=== PATIENT | male | born 1995 | race Caucasian/White ===

== ENCOUNTER 2017-08-15 18:26 | Emergency (ER) | payer BC, OTHER ==
[~2017-08-15] VITALS: Ht 182.9 cm; Wt 85.9 kg
[2017-08-15 18:42] VITALS: TEMP 37; Ht 182.9 cm; Wt 85.9 kg
[2017-08-15 18:55] VITALS: O2SAT 93
[2017-08-15] MEDS ORDERED: ONDANSETRON 4MG OD TAB PO ONE (19:30)
[2017-08-15 19:53] LABS: BUN/CREATININE RATIO 14.3 (10-20); CALCIUM 8.1 mg/dl (8.5-10.1); CREATININE 1.07 mg/dl (0.60-1.40); POTASSIUM 3.9 mmol/L (3.5-5.1)
--- NOTE | 2017-08-15 20:33 | DIAGNOSTIC IMAGING REPORT ---
CT SCAN OF THE BRAIN WITHOUT IV CONTRAST CLINICAL HISTORY: Intoxication. Syncope. COMPARISON STUDY: No priors. TECHNIQUE: Unenhanced axial CT scan of the brain is performed from the vertex to the skull base. A dose lowering technique was utilized adhering to the principles of ALARA. CT DOSE: 614.27 mGy.cm FINDINGS: Brain parenchyma: The brain parenchyma is normal in appearance. There is no hemorrhage, mass effect, or evidence of acute territorial ischemia by CT criteria. Jenkins-white matter is preserved. No extra-axial fluid collection is seen. Ventricles, sulci, cisterns: Normal in configuration. Intracranial vasculature: The visualized intracranial vasculature at the skull base is normal in appearance. Calvarium: There is no depressed calvarial fracture. Sinuses and mastoids: Trace mucosal thickening is seen within the maxillary antra, the sphenoid sinuses, and the ethmoid sinuses. Moderate mucosal thickening is present in the left frontal sinus. The mastoid air cells are well pneumatized. Orbits: The bony orbits are grossly intact. IMPRESSION: No acute intracranial abnormality. Electronically signed by: Siva Crowell M.D. 08/15/2017 8:32 PM Dictated Date/Time: 08/15/2017 8:30 PM
[2017-08-16] MEDS ORDERED: LORAZEPAM 2 MG/ML 1 ML VIAL IM STA (00:44)
--- NOTE | 2017-08-16 01:04 | EMERGENCY ROOM VISIT NOTE ---
History Report prepared by Kishoribeligio: Lela West Under the Supervision of: Dr. Ed Dwyer D.O. 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 Per EMS, the patient was found outside a [employer] [facility] at the [email or web address] today. He has no obvious trauma but there is blood in the left naris. He notes that the patient has been vomiting. HPI limited secondary to alcohol intoxication. Source of History: EMS History Limited By: intoxication Onset: NETWORK DEVELOPER Position: other (global) Quality: other (alcohol intoxication) Timing: constant Associated Symptoms: + vomiting Note: No obvious trauma. Review of Systems See HPI for pertinent positives & negatives. A total of 10 systems reviewed and were otherwise negative. Past Medical & Surgical Medical Problems: (1) No Known Active Medical Problems Family History No pertinent family history stated. Social History Marital Status: single Housing Status: lives with roommate Occupation Status: [employer] student Current/Historical Medications No Active Prescriptions or Reported Meds Physical Exam Vital Signs Date Time Temp Pulse Resp B/P (MAP) Pulse Ox O2 Delivery O2 Flow Rate FiO2 08/16/17 00:27 95 18 131/67 99 Room Air 08/15/17 23:55 106 18 110/53 97 Room Air 08/15/17 21:23 83 18 115/59 98 Room Air 08/15/17 21:02 73 08/15/17 19:28 76 116/57 100 Room Air 08/15/17 18:55 93 Room Air 08/15/17 18:54 98 Nasal Cannula 08/15/17 18:42 37.0 96 17 143/92 93 Room Air Physical Exam CONSTITUTIONAL/VITAL SIGNS: Reviewed / noted above. GENERAL: Non-toxic in appearance. INTEGUMENTARY: Warm, dry, and [place]. HEAD: Normocephalic. EYES: without scleral icterus or trauma. ENT/OROPHARYNX: clear and moist. Blood in bilateral naris, no active bleeding. LYMPHADENOPATHY/NECK: Is supple without lymphadenopathy or meningismus. RESPIRATORY: Lungs clear and equal. CARDIOVASCULAR: Regular rate and rhythm. GI/ABDOMEN: Soft and nontender. No organomegaly or pulsatile mass. No rebound or guarding. Normal bowel sounds. EXTREMITIES: Warm and well perfused. BACK: No CVA tenderness. Abrasion to right upper back. NEUROLOGICAL: Unresponsive to verbal stimuli, noted to move extremities with pain. PSYCHIATRIC: normal affect. MUSCULOSKELETAL: Normally developed with good muscle tone. Medical Decision & Procedures ER Provider Diagnostic Interpretation: Radiology results as stated below per my review and radiologist interpretation: CT SCAN OF THE BRAIN WITHOUT IV CONTRAST FINDINGS: Brain parenchyma: The brain parenchyma is normal in appearance. There is no hemorrhage, mass effect, or evidence of acute territorial ischemia by CT criteria. Jenkins-white matter is preserved. No extra-axial fluid collection is seen. Ventricles, sulci, cisterns: Normal in configuration. Intracranial vasculature: The visualized intracranial vasculature at the skull base is normal in appearance. Calvarium: There is no depressed calvarial fracture. Sinuses and mastoids: Trace mucosal thickening is seen within the maxillary antra, the sphenoid sinuses, and the ethmoid sinuses. Moderate mucosal thickening is present in the left frontal sinus. The mastoid air cells are well pneumatized. Orbits: The bony orbits are grossly intact. IMPRESSION: No acute intracranial abnormality. Electronically signed by: Siva Crowell M.D. 08/15/2017 8:32 PM Dictated Date/Time: 08/15/2017 8:30 PM Laboratory Results 08/15/17 19:12 Test 08/15/17 19:12 Anion Gap 10.0 mmol/L (3-11) Est Creatinine Clear Calc Drug Dose 120.9 ml/min Estimated GFR () 115.2 Estimated GFR (Non- 99.4 BUN/Creatinine Ratio 14.3 (10-20) Calcium Level 8.1 mg/dl (8.5-10.1) Ethyl Alcohol mg/dL 368.8 mg/dl (0-3) Laboratory results as stated above per my review. Medications Administered Medications (Trade) Dose Ordered Sig/Anitha Route Start Time Stop Time Status Last Admin Dose Admin Ondansetron HCl (Zofran Odt) 4 mg ONE ONCE PO 08/15/17 19:30 08/15/17 19:31 DC 08/15/17 19:22 4 MG ED Course 182: Previous medical records were reviewed. The patient was evaluated in room A11. A complete history and physical examination was performed. 1930: Zofran Odt 4mg PO. 0015: The patient will be discharged at 0800. Medical Decision There is no evidence of other toxic ingestions, trauma, anemia, hypoglycemia, head injury or intracranial pathology, meningitis, encephalitis, acute intrathoracic or abdominal pathology or other metabolic condition. This is a 22-year-old male who presents to the ED with a chief complaint of alcohol intoxication. The patient also fell and suffered abrasions to his face. He had some blood in his nose. There is no evidence of septal hematoma. The patient also. Have an abrasion to his right upper back. His lungs were clear. His exam was otherwise unremarkable. His vital signs are stable. Alcohol level was 368 at 1900 hrs. The patient's father and roommate also came to the ED to see him. They were advised to pick him up around 8 AM at which time he would be sober. The patient did become awake and somewhat agitated around 1 AM and was given 2 mg of IM Ativan to calm him. The patient remained in an aspiration precaution position during his ED stay. The patient remained on the monitor without ectopy. Pulse ox was never shown any evidence of hypoxia. Blood pressure never showed significant hypotension. The patient was observed during the entire night and awoke in the morning. The mental status improved and the patient was awake alert and oriented and was felt stable for discharge. Patient was discharged home. Medication Reconcilliation Current Medication List: was personally reviewed by me Blood Pressure Screening Patient's blood pressure: Elevated blood pressure Blood pressure disposition: Elevated BP felt to be situational Impression Primary Impression: Alcoholic intoxication Scribe Attestation The scribe's documentation has been prepared under my direction and personally reviewed by me in its entirety. I confirm that the note above accurately reflects all work, treatment, procedures, and medical decision making performed by me. Departure Information Dispostion Home / Self-Care Prescriptions No Active Prescriptions or Reported Meds Patient Instructions Alcohol Intoxication - [facility], [facility]: [employer] Students and Alcohol Related Visits , My [facility] Additional Instructions Do not drink alcohol.
[2017-08-16] MEDS ORDERED: HALOPERIDOL LACTATE 5 MG/ML 1 ML VIAL IM STA (01:49)
[2017-08-16 09:16] VITALS: BP 110/68; PULSE 97; O2SAT 100
[2017-08-17] MEDS ORDERED: AMPH20CA3 PO (17:41)
== END 2017-08-16 09:20 | disposition home or self-care (01) ==
LOC: EDBD 18:26 → C.EDA 18:28 → C.EDC 08-16 09:20
DX: F10.129 Alcohol abuse with intoxication, unspecified (principal); Y90.8 Blood alcohol level of 240 mg/100 ml or more

== ENCOUNTER 2017-08-17 16:41 | Emergency (ER) | payer BC ==
[~2017-08-17] VITALS: Ht 180.3 cm; Wt 86.4 kg
[2017-08-17 16:49] VITALS: TEMP 36.8
[2017-08-17] MEDS ORDERED: SODIUM CHLORIDE 0.9% 1000ML 1,000 ML IV STA (17:01)
[2017-08-17] MEDS ORDERED: BENZTROPINE MESYLATE 1 MG/ML 2 ML AMP IV STA ×2 (17:01→17:06)
[2017-08-17] MEDS ORDERED: CLONIDINE HCL 0.3 MG/24 HR TRANSDERM SYS TD STA (17:05)
--- NOTE | 2017-08-17 17:11 | EMERGENCY ROOM VISIT NOTE ---
History Report prepared by Kishoribe: Sofie Kwon Under the Supervision of: Dr. Ed Ruiz M.D. First contact with patient: 16:56 Chief Complaint: ILLNESS Stated Complaint: TREMORS History of Present Illness The patient is a 22 year old male who presents to the Emergency Room with complaints of tremors beginning this morning. The patient states that he drinks large amounts of alcohol twice a week. He has abdominal pain and his neck hurts from his tremors. The patient was seen in the ED on Thursday by Dr. Dwyer and he had a blood alcohol level of 368. Source of History: patient Onset: this morning Position: other (generalized) Quality: other (tremors) Associated Symptoms: + neck pain, + abdominal pain Review of Systems See HPI for pertinent positives & negatives. A total of 10 systems reviewed and were otherwise negative. Past Medical & Surgical Medical Problems: (1) No Known Active Medical Problems Family History No pertinent family history stated Social History Smoking Status: Never Smoker Marital Status: single Housing Status: lives with roommate Occupation Status: [employer] student Current/Historical Medications Scheduled PRN Amphetamine-Dextroamphetamine 20MG (Adderall Xr 20MG), 20 MG PO PT PRN for CONCENTRATION Allergies Coded Allergies: No Known Allergies (Unverified , 08/17/17) Physical Exam Vital Signs Date Time Temp Pulse Resp B/P (MAP) Pulse Ox O2 Delivery O2 Flow Rate FiO2 08/17/17 19:11 94 16 142/79 98 08/17/17 18:45 94 16 142/79 98 Room Air 08/17/17 18:43 77 16 138/68 98 Room Air 100 137/75 94 142/79 08/17/17 17:21 99 Room Air 08/17/17 17:21 99 Room Air 08/17/17 17:03 99 08/17/17 16:49 36.8 130 20 156/82 100 Room Air Physical Exam GENERAL: Patient is a tremulous male: sensation immediately ceased with Cogentin HEAD: Normocephalic atraumatic EYES: Ocular movements intact pupils equal and react to light OROPHARYNX mucous membranes are moist no exudates present no erythema or edema present NECK: Cannot move neck CHEST: Good equal expansion LUNGS: Clear and equal to auscultation CARDIAC: Normal S1 and S2 ABDOMEN: Soft nontender no guarding BACK: No CVA tenderness EXTREMITIES: Foot stuck in air NEURO: Patient is following commands and answering questions appropriately. Alert and oriented x3 Cranial Nerves 2-12 grossly intact Medical Decision & Procedures Laboratory Results 08/17/17 17:29 Red Blood Count 4.80, Mean Corpuscular Volume 83.1, Mean Corpuscular Hemoglobin 29.4, Mean Corpuscular Hemoglobin Concent 35.3, Mean Platelet Volume 11.1, Neutrophils (%) (Auto) 72.1, Lymphocytes (%) (Auto) 18.4, Monocytes (%) (Auto) 8.3, Eosinophils (%) (Auto) 1.0, Basophils (%) (Auto) 0.1, Neutrophils # (Auto) 5.06, Lymphocytes # (Auto) 1.29, Monocytes # (Auto) 0.58, Eosinophils # (Auto) 0.07, Basophils # (Auto) 0.01 08/17/17 17:29 Test 08/17/17 17:29 08/17/17 18:33 White Blood Count 7.02 K/uL (4.8-10.8) Red Blood Count 4.80 M/uL (4.7-6.1) Hemoglobin 14.1 g/dL (14.0-18.0) Hematocrit 39.9 % (42-52) Mean Corpuscular Volume 83.1 fL (80-100) Mean Corpuscular Hemoglobin 29.4 pg (25-34) Mean Corpuscular Hemoglobin Concent 35.3 g/dl (32-36) Platelet Count 170 K/uL (130-400) Mean Platelet Volume 11.1 fL (7.4-10.4) Neutrophils (%) (Auto) 72.1 % Lymphocytes (%) (Auto) 18.4 % Monocytes (%) (Auto) 8.3 % Eosinophils (%) (Auto) 1.0 % Basophils (%) (Auto) 0.1 % Neutrophils # (Auto) 5.06 K/uL (1.4-6.5) Lymphocytes # (Auto) 1.29 K/uL (1.2-3.4) Monocytes # (Auto) 0.58 K/uL (0.11-0.59) Eosinophils # (Auto) 0.07 K/uL (0-0.5) Basophils # (Auto) 0.01 K/uL (0-0.2) RDW Standard Deviation 39.4 fL (36.4-46.3) RDW Coefficient of Variation 13.1 % (11.5-14.5) Immature Granulocyte % (Auto) 0.1 % Immature Granulocyte # (Auto) 0.01 K/uL (0.00-0.02) Anion Gap 9.0 mmol/L (3-11) Est Creatinine Clear Calc Drug Dose 114.0 ml/min Estimated GFR () 111.4 Estimated GFR (Non- 96.1 BUN/Creatinine Ratio 7.5 (10-20) Calcium Level 8.5 mg/dl (8.5-10.1) Total Bilirubin 0.5 mg/dl (0.2-1) Direct Bilirubin 0.1 mg/dl (0-0.2) Aspartate Amino Transf (AST/SGOT) 23 U/L (15-37) Alanine Aminotransferase (ALT/SGPT) 31 U/L (12-78) Alkaline Phosphatase 64 U/L (45-117) Total Creatine Kinase 430 U/L (39-308) Creatine Kinase MB 0.6 ng/ml (0.5-3.6) Creatine Kinase MB Ratio 0.1 (0-3.0) Troponin I < 0.015 ng/ml (0-0.045) Total Protein 7.6 gm/dl (6.4-8.2) Albumin 3.8 gm/dl (3.4-5.0) Thyroid Stimulating Hormone (TSH) 1.390 uIu/ml (0.300-4.500) Ethyl Alcohol mg/dL < 3.0 mg/dl (0-3) Urine Color YELLOW Urine Appearance CLEAR (CLEAR) Urine pH 7.0 (4.5-7.5) Urine Specific [address] 1.012 (1.000-1.030) Urine Protein TRACE (NEG) Urine Glucose (UA) NEG (NEG) Urine Ketones TRACE (NEG) Urine Occult Blood NEG (NEG) Urine Nitrite NEG (NEG) Urine Bilirubin NEG (NEG) Urine Urobilinogen NEG (NEG) Urine Leukocyte Esterase TRACE (NEG) Urine WBC (Auto) 1-5 /hpf (0-5) Urine RBC (Auto) 0-4 /hpf (0-4) Urine Hyaline Casts (Auto) 0 /lpf (0-5) Urine Epithelial Cells (Auto) 0-5 /lpf (0-5) Urine Bacteria (Auto) NEG (NEG) Urine Opiates Screen NEG (NEG) Urine Methadone, Qualitative NEG (NEG) Urine Barbiturates NEG (NEG) Urine Phencyclidine (PCP) Level NEG (NEG) Ur Amphetamine/Methamphetamine NEG (NEG) MDMA (Ecstasy) Screen NEG (NEG) Urine Benzodiazepines Screen NEG (NEG) Urine Cocaine Metabolite NEG (NEG) Urine Marijuana (THC) NEG (NEG) Labs reviewed by ED physician. Medications Administered Medications (Trade) Dose Ordered Sig/Anitha Route Start Time Stop Time Status Last Admin Dose Admin Benztropine Mesylate (Cogentin Inj) 1 mg NOW STAT IV 08/17/17 17:01 08/17/17 17:03 DC 08/17/17 17:11 2 MG Sodium Chloride 1,000 ml @ 999 mls/hr Q1H1M STAT IV 08/17/17 17:01 08/17/17 18:01 DC 08/17/17 17:10 999 MLS/HR ECG Indication: diaphoresis Rate (beats per minute): 79 Rhythm: normal sinus Findings: no acute ischemic change, no ectopy Comparison ECG Date: no prior available ED Course 1700: Past medical records reviewed. The patient was evaluated in room B4B. A complete history and physical examination was performed. 1701: Sodium Chloride 1000 ml @ 999 mls/hr, Cogentin Inj 1 mg IV. 1705: Clonidine HCl 1 patch TD. 1706: Cogentin Inj 1 mg IV. 1710: I called the patients parents. I made them aware that I advised the patient to go to a rehab facility and he declined. The patient's father told me that the patient has been using cocaine. 1811: I rechecked the patient with mother at bedside. She is demanding a toxicology screen. Medical Decision Differential diagnoses: medication reaction and withdrawal. This is a 22-year-old male who presents emergency department with what appears to be extrapyramidal side effects. The patient received Haldol and Ativan when he was in the emergency department 2 nights ago. Based on this finding the patient was immediately given Cogentin in the emergency Department with immediate cessation of his symptoms. A CBC renal profile EKG as well as cardiac enzymes were obtained. The patient has normal EKG as well as normal CBC renal profile. His CK is slightly elevated however I feel he can be safely discharged home. I stressed the need to increase his fluid intake over the next 48 hours. The patient is also going to take 50 mg of Benadryl every 6 hours. I did discuss my findings with the patient's mother who was in the room as well as his father who was over the telephone. Medication Reconcilliation Current Medication List: was personally reviewed by me Blood Pressure Screening Patient's blood pressure: Elevated blood pressure Impression Primary Impression: Dystonic drug reaction Scribe Attestation The scribe's documentation has been prepared under my direction and personally reviewed by me in its entirety. I confirm that the note above accurately reflects all work, treatment, procedures, and medical decision making performed by me. Departure Information Dispostion Home / Self-Care Referrals No Doctor, Assigned (PCP) Patient Instructions My [facility]
[2017-08-17 17:14] VITALS: Ht 180.3 cm; Wt 86.4 kg
[2017-08-17 17:21] VITALS: O2SAT 99
[2017-08-17] MEDS ORDERED: AMPH20CA3 PO (17:41)
[2017-08-17 18:35] LABS: ALT/SGPT 31 U/L (12-78); BUN/CREATININE RATIO 7.5 (10-20); CALCIUM 8.5 mg/dl (8.5-10.1); CARBON DIOXIDE 25 mmol/L (21-32); CHLORIDE 106 mmol/L (98-107); GLUCOSE 100 mg/dl (70-99); POTASSIUM 3.7 mmol/L (3.5-5.1); SODIUM 140 mmol/L (136-145)
[2017-08-17 18:42] LABS: URINE APPEARANCE CLEAR (CLEAR); URINE BILIRUBIN NEG (NEG); URINE COLOR YELLOW; URINE EPITHELIAL CELL AUTO 0-5 /lpf (0-5); URINE NITRITE NEG (NEG); URINE SPECIFIC GRAVITY 1.012 (1.000-1.030); UROBILINOGEN NEG (NEG)
[2017-08-17 18:43] LABS: MANUAL MICROSCOPIC REQUIRED? NO; REVIEW REQ? NO
[2017-08-17 18:45] LABS: BASO % 0.1 %; BASO ABS # 0.01 K/uL (0-0.2); COMPLETE YES; HEMATOCRIT 39.9 % (42-52); IG% 0.1 %; LYMPH % 18.4 %; LYMPH ABS # 1.29 K/uL (1.2-3.4); MEAN CELL VOLUME 83.1 fL (80-100); MEAN CORPUSCULAR HEMOGLOBIN 29.4 pg (25-34); MEAN CORPUSCULAR HGB CONC 35.3 g/dl (32-36); MEAN PLATELET VOLUME 11.1 fL (7.4-10.4); MONO % 8.3 %; NEUT % 72.1 %; PLATELET COUNT 170 K/uL (130-400); WHITE BLOOD COUNT 7.02 K/uL (4.8-10.8)
[2017-08-17 18:49] LABS: ALKALINE PHOSPHATASE 64 U/L (45-117); AST/SGOT 23 U/L (15-37); CKMB/CK RATIO 0.1 (0-3.0)
[2017-08-17 19:07] LABS: BENZODIAZEPINE, URINE NEG (NEG); COCAINE,URINE NEG (NEG); PHENCYCLIDINE, URINE NEG (NEG)
[2017-08-17 19:11] VITALS: BP 142/79; PULSE 94; O2SAT 98
[2017-08-17 20:00] LABS: BLOOD UREA NITROGEN 8 mg/dl (7-18)
== END 2017-08-17 19:12 | disposition home or self-care (01) ==
LOC: EDBD 16:41 → C.EDB 16:43
DX: G24.09 Other drug induced dystonia (principal)